=== PATIENT | male | born 1985 | race Hispanic/Latino ===

== ENCOUNTER 2019-03-13 00:22 | Emergency (ER) | payer OTHER ==
[~2019-03-13] VITALS: Ht 185.4 cm; Wt 94.8 kg
[2019-03-13] MEDS ORDERED: DIPHENHYDRAMINE HCL INJ 50 MG/ML VIAL ONE (00:44)
[2019-03-13] MEDS ORDERED: DEXAMETHASONE SOD PHOS 10 MG/1 ML VIAL ONE (00:44)
[2019-03-13] MEDS ORDERED: DEXAMETHASONE SOD PHOS 10 MG/1 ML VIAL IM ONE (00:45)
[2019-03-13] MEDS ORDERED: DIPHENHYDRAMINE HCL INJ 50 MG/ML VIAL IM ONE (00:45)
== END 2019-03-13 01:15 | disposition home or self-care (01) ==
LOC: FSED 00:22
DX: L50.0 Allergic urticaria (principal)
CPT/HCPCS: 96372; 99282; J1100; J1200